=== PATIENT | male | born 1985 | race Two or more races ===

== ENCOUNTER 2016-05-17 14:25 | Emergency (ER) | payer OTHER ==
[~2016-05-17] VITALS: Ht 172.7 cm; Wt 85.7 kg
[2016-05-17 14:25] VITALS: BP 123/67
== END 2016-05-17 17:42 | disposition home or self-care (01) ==
LOC: ER 14:28
DX: S09.90XA Unspecified injury of head, initial encounter (principal); W11.XXXA Fall on and from ladder, initial encounter; Y93.E9 Activity, other interior property and clothing maintenance; Y92.098 Other place in other non-institutional residence as the place of occurrence of the external cause; Y99.8 Other external cause status; S70.01XA Contusion of right hip, initial encounter; S63.91XA Sprain of unspecified part of right wrist and hand, initial encounter; F17.210 Nicotine dependence, cigarettes, uncomplicated
CPT/HCPCS: 70450-TC; 73130-TC; 73510-TC; A4606; A6402; Z7610